=== PATIENT | female | born 1980 | race Caucasian/White ===

== ENCOUNTER 2017-04-04 10:21 | Emergency (ER) | payer OTHER ==
[~2017-04-04] VITALS: Ht 157.4 cm; Wt 89.8 kg
[~2017-04-04 10:21] MED LIST: ANAPROX DS550 MG PO; BACTRIM DS 8001 TA1 PO; BACTROBAN CREAM15 GM PO; CERUMENEX 12 ML12 ML OT; CIPRODEX 0.3%-7.5 ML OT; DILANTIN100 MG PO; GOOD NEIGHBOR L10 MG PO; MOTRIN800 MG PO; PEN-VEE K500 MG PO; PENICILLIN VK500 MG PO; ZOVIRAX800 MG PO
[2017-04-04] MEDS ORDERED: PREDNISONE10 MG PO (10:45)
[2017-04-04] MEDS ORDERED: ROBITUSSIN DM 105 ML PO (10:45)
[2017-04-04] MEDS ORDERED: FLONASE ALLERG9.9 ML NAS (10:45)
[2017-04-04] MEDS ORDERED: CLARITIN10 MG PO (10:45)
== END 2017-04-04 11:46 | disposition home or self-care (01) ==
LOC: ED 10:21
DX: J20.9 Acute bronchitis, unspecified (principal); R03.0 Elevated blood-pressure reading, without diagnosis of hypertension; Z79.899 Other long term (current) drug therapy

== ENCOUNTER → 2020-06-24 | Outpatient (CLI) | payer OTHER ==
[~2020-06-24] MED LIST changes: +CLARITIN10 MG PO; +FLONASE ALLERG9.9 ML NAS; +PREDNISONE10 MG PO; +ROBITUSSIN DM 105 ML PO
== END | disposition home or self-care (01) ==
LOC: LAB 16:00
PROVIDERS: ATTEND Nurse Practitioner Primary Care
DX: D50.9 Iron deficiency anemia, unspecified (principal)

== ENCOUNTER 2020-11-22 19:03 | Emergency (ER) | payer OTHER ==
[~2020-11-22] VITALS: Ht 167.6 cm; Wt 127.0 kg
[2020-11-22] MEDS ORDERED: AUGMENTIN 875875 MG PO (21:48)
== END 2020-11-22 21:52 | disposition home or self-care (01) ==
LOC: ED 19:03
DX: S61.451A Open bite of right hand, initial encounter (principal); W55.01XA Bitten by cat, initial encounter; Y93.89 Activity, other specified; Y92.89 Other specified places as the place of occurrence of the external cause; Y99.8 Other external cause status

== ENCOUNTER → 2021-01-09 | Outpatient (CLI) | payer OTHER ==
[~2021-01-09] MED LIST changes: +AUGMENTIN 875875 MG PO
== END | disposition home or self-care (01) ==
LOC: MAMMO 01-01 08:30
PROVIDERS: ATTEND Nurse Practitioner Primary Care
DX: Z12.31 Encounter for screening mammogram for malignant neoplasm of breast (principal)

== ENCOUNTER → 2021-01-22 | Outpatient (CLI) | payer OTHER | END | disposition home or self-care (01) | LOC: US 00:57 | PROVIDERS: ATTEND Nurse Practitioner Primary Care | DX: N63.12 Unspecified lump in the right breast, upper inner quadrant (principal); N64.59 Other signs and symptoms in breast; N63.0 Unspecified lump in unspecified breast ==

== ENCOUNTER → 2021-05-08 | Outpatient (CLI) | payer OTHER | END | disposition home or self-care (01) | LOC: COVID19 15:50 | PROVIDERS: ATTEND Internal Medicine | DX: U07.1 COVID-19 (principal) ==

== ENCOUNTER → 2022-09-09 | Outpatient (CLI) | payer OTHER | END | disposition home or self-care (01) | LOC: MAMMO 07-15 01:02 | PROVIDERS: ATTEND Internal Medicine | DX: Z12.31 Encounter for screening mammogram for malignant neoplasm of breast (principal) ==

== ENCOUNTER 2022-12-12 19:32 | Emergency (ER) | payer OTHER ==
[~2022-12-12] VITALS: Ht 157.4 cm; Wt 86.2 kg
[2022-12-12] MEDS ORDERED: ATORVASTATIN CA40 M1 PO (19:35)
[2022-12-12] MEDS ORDERED: CETIRIZINE HYDR10 MG PO (19:35)
[2022-12-12] MEDS ORDERED: VITAMIN D350 MCG PO (19:36)
[2022-12-12] MEDS ORDERED: RA FISH OIL 1,1 EACH PO (19:36)
[2022-12-12] MEDS ORDERED: FEROSUL325 M1 PO (19:36)
[2022-12-12] MEDS ORDERED: VITAMIN C500 M4 PO (19:36)
[2022-12-12] MEDS ORDERED: LISINOPRIL10 M1 PO (19:36)
[2022-12-12] MEDS ORDERED: PENICILLIN VK500 MG PO (19:52)
== END 2022-12-12 20:04 | disposition home or self-care (01) ==
LOC: ED 19:32
DX: K02.9 Dental caries, unspecified (principal); K04.7 Periapical abscess without sinus; Z98.890 Other specified postprocedural states

== ENCOUNTER → 2023-01-13 | Outpatient (CLI) | payer OTHER ==
[~2023-01-13] MED LIST changes: +ATORVASTATIN CA40 M1 PO; +CETIRIZINE HYDR10 MG PO; +FEROSUL325 M1 PO; +LISINOPRIL10 M1 PO; +RA FISH OIL 1,1 EACH PO; +VITAMIN C500 M4 PO; +VITAMIN D350 MCG PO
== END | disposition home or self-care (01) ==
LOC: LAB 14:56
PROVIDERS: ATTEND Nurse Practitioner Women's Health
DX: D64.9 Anemia, unspecified (principal)

== ENCOUNTER → 2023-09-13 | Outpatient (CLI) | payer OTHER | LOC: MAMMO 08:56 | PROVIDERS: ATTEND Internal Medicine | DX: Z12.31 Encounter for screening mammogram for malignant neoplasm of breast (principal); R93.0 Abnormal findings on diagnostic imaging of skull and head, not elsewhere classified ==

== ENCOUNTER → 2024-09-19 | Outpatient (CLI) | payer OTHER | END | disposition home or self-care (01) | LOC: MAMMO 15:00 | PROVIDERS: ATTEND Internal Medicine | DX: Z12.31 Encounter for screening mammogram for malignant neoplasm of breast (principal); N63.12 Unspecified lump in the right breast, upper inner quadrant ==